=== PATIENT | male | born 1965 | race Asian ===

== ENCOUNTER → 2017-04-30 | Outpatient (CLI) | payer OTHER ==
[2017-04-30 12:46] LABS: HEMATOCRIT 46.4 % (39.2-51.8); HEMOGLOBIN 15.5 g/dL (13.7-18.0); WHITE BLOOD COUNT 4.1 x10^3/uL (3.4-10)
[2017-04-30 12:58] LABS: BLOOD UREA NITROGEN 24 mg/dL (7-18)
[2017-04-30 13:04] LABS: ASPARTATE AMINO TRANSFERASE 25 U/L (15-37)
== END | disposition home or self-care (01) ==
LOC: CFH 06:46
PROVIDERS: ATTEND Radiology Radiation Oncology
DX: Z12.5 Encounter for screening for malignant neoplasm of prostate (principal); Z13.0 Encounter for screening for diseases of the blood and blood-forming organs and certain disorders involving the immune mechanism; Z13.228 Encounter for screening for other metabolic disorders; R79.89 Other specified abnormal findings of blood chemistry
CPT/HCPCS: 36415; 80053; 80061; 84153; 85025; G0103

== ENCOUNTER 2018-02-21 10:14 | Observation (INO) | payer OTHER ==
[~2018-02-21] VITALS: Ht 172.7 cm; Wt 59.0 kg
[2018-02-21 11:55] LABS: BASOPHILS # (AUTO) 0.02 x10^3/uL (0-0.1); BASOPHILS % (AUTO) 0 % (0-1); EOSINOPHILS # (AUTO) 0.02 x10^3/uL (0-0.4); EOSINOPHILS % (AUTO) 0 % (1-7); LYMPHOCYTES # (AUTO) 0.65 x10^3/uL (1-3.4); LYMPHOCYTES % (AUTO) 7 % (22-44); MD NO; MEAN CORPUSCULAR HEMOGLOBIN 31.6 pg (27.5-34.5); MEAN CORPUSCULAR HGB CONC 34.1 g/dL (33.2-36.2); MEAN CORPUSCULAR VOLUME 92.6 fL (81-97); MEAN PLATELET VOLUME 7.5 fL (7.4-10.4); MONOCYTES # (AUTO) 0.24 x10^3/uL (0.2-0.8); MONOCYTES % (AUTO) 3 % (2-9); NEUTROPHILS # (AUTO) 8.72 x10^3/uL (1.8-6.8); NEUTROPHILS % (AUTO) 90 % (42-75); PLATELET COUNT 267 x10^3/uL (130-400); RED BLOOD COUNT 4.98 x10^6/uL (4.38-5.82); RED CELL DISTRIBUTION WIDTH 13.3 % (9.4-14.8)
[2018-02-21] MEDS ORDERED: FENTANYL PF 100 MCG/2ML IV ONE (12:00)
[2018-02-21] MEDS ORDERED: DIAZEPAM 5 MG/ML, 2ML IV ONE (12:00)
[2018-02-21 12:02] LABS: ALBUMIN 4.2 g/dL (3.4-5.0); ANION GAP 7 mmol/L (5-15); CHLORIDE 107 mmol/L (98-107); CREATININE 0.88 mg/dL (0.7-1.3)
[2018-02-21 12:34] LABS: INTERNATIONAL NORMALIZED RATIO 1.03 (0.93-1.1); PROTHROMBIN TIME 10.7 Seconds (9.6-11.5)
[2018-02-21] MEDS ORDERED: MIDAZOLAM 1 MG/ML, 2ML ONE (13:24)
[2018-02-21] MEDS ORDERED: FENTANYL PF 250 MCG/5ML ONE (13:24)
[2018-02-21] MEDS ORDERED: KETAMINE 10 MG/ML, 20ML ONE (13:56)
[2018-02-21] MEDS: D5%-0.45% NACL 1,000 ML IV SCH ×2 (13:57→19:39)
[2018-02-21] MEDS ORDERED: HYDROcodone/APAP 5/325 TABLET PO PRN (14:00)
[2018-02-21] MEDS ORDERED: GABAPENTIN 300 MG CAPSULE PO ONE (14:00)
[2018-02-21] MEDS ORDERED: ONDANSETRON 2MG/ML, 2ML IVPush PRN (14:00)
[2018-02-21] MEDS: CEFAZOLIN PMX 1GM/50ML 50 ML IVPB SCH ×2 (14:00→22:22)
[2018-02-21] MEDS ORDERED: OXYcodone/APAP 5/325MG TABLET PO PRN (14:00)
[2018-02-21] MEDS ORDERED: ACETAMINOPHEN 500 MG TABLET PO ONE (14:00)
[2018-02-21] MEDS ORDERED: morphine SULFATE 10 MG/ML, 1ML IVPush PRN (14:00)
[2018-02-21] MEDS ORDERED: BUPIVACAINE/PF-EPI 0.5% 1:200K ONE (14:01)
[2018-02-21] MEDS ORDERED: ONDANSETRON 2MG/ML, 2ML ONE (14:13)
[2018-02-21] MEDS ORDERED: CEFAZOLIN 1,000 MG ONE (14:13)
[2018-02-21] MEDS ORDERED: PROPOFOL 10 MG/ML, 20ML ONE (14:13)
[2018-02-21] MEDS ORDERED: ROCURONIUM 10 MG/ML,10ML ONE (14:13)
[2018-02-21] MEDS ORDERED: SUCCINYLCHOLINE 20 MG/ML, 10ML ONE (14:13)
[2018-02-21] MEDS ORDERED: DEXAMETHASONE 4 MG/ML, 1ML ONE (14:13)
[2018-02-21] MEDS ORDERED: TRANEXAMIC ACID 100 MG/ML, 10ML ONE (14:26)
[2018-02-21] MEDS ORDERED: ALBUTEROL SULFATE 2.5 MG/3 ML NPPB PRN (15:30)
[2018-02-21] MEDS ORDERED: MEPERIDINE/PF 25MG/0.5ML IVPush PRN (15:30)
[2018-02-21] MEDS ORDERED: LORazepam 2 MG/ML, 1ML IVPush PRN (15:30)
[2018-02-21] MEDS ORDERED: PROMETHAZINE 25 MG/ML, 1ML IV PRN (15:30)
[2018-02-21] MEDS ORDERED: HYDROmorphone 1 MG/ML, 1ML IV PRN (15:30)
[2018-02-21] MEDS ORDERED: FENTANYL PF 100 MCG/2ML IV PRN (15:30)
[2018-02-21] MEDS ORDERED: OXYcodone 5 MG/5 ML ORAL.SOL UDC PO PRN (15:30)
[2018-02-21] MEDS ORDERED: LABETALOL 5MG/ML, 20ML IV PRN (15:30)
[2018-02-21] MEDS ORDERED: hydrALAzine 20 MG/ML, 1ML IV PRN (15:30)
[2018-02-21] MEDS ORDERED: MORPHINE SULFATE 4 MG/ML, 1ML IVPush PRN (15:30)
[2018-02-21 19:45] VITALS: BP 101/61
[2018-02-21] MEDS: ASPIRIN 325 MG TABLET EC PO SCH (20:11)
[2018-02-21] MEDS: DOCUSATE 100 MG CAPSULE PO SCH (20:11)
[2018-02-22 00:23] VITALS: BP 94/52
[2018-02-22 02:32] VITALS: BP 109/61
[2018-02-22 04:11] VITALS: BP 107/62
[2018-02-22 07:35] VITALS: BP 112/68
[2018-02-22] MEDS: DOCUSATE 100 MG CAPSULE PO SCH (08:03)
[2018-02-22] MEDS: ASPIRIN 325 MG TABLET EC PO SCH (08:03)
[2018-02-22] MEDS ORDERED: HYDR-3240 PO (09:50)
[2018-02-22] MEDS ORDERED: ASPIRIN (09:50)
[2018-02-22] MEDS ORDERED: ASPI-650 PO (09:51)
== END 2018-02-22 10:40 | disposition home or self-care (01) ==
LOC: ED 12:01 → 4NOR 12:20 → ED 23:51 → 4NOR 23:55 → DCLOUNGE 02-22 10:25
PROVIDERS: ADMIT Orthopaedic Surgery; ATTEND Orthopaedic Surgery
DX: S72.001A Fracture of unspecified part of neck of right femur, initial encounter for closed fracture (principal); V29.3XXA Motorcycle rider (driver) (passenger) injured in unspecified nontraffic accident, initial encounter; Y93.55 Activity, bike riding; Y92.89 Other specified places as the place of occurrence of the external cause; Y99.8 Other external cause status
CPT/HCPCS: 27235; 36415; 73501; 73502; 76000; 80048; 82040; 85025; 85610; 96365; 96375; 97161; G0378; J0330; J0690; J1100; J2250; J2405; J2704; J3010; J3360; C1713

== ENCOUNTER → 2018-04-21 | Outpatient (CLI) | payer OTHER ==
[~2018-04-21] MED LIST: ASPI-650 PO; ASPIRIN; HYDR-3240 PO
[2018-04-21 07:31] LABS: CHOL/HDL RATIO 2.8; LDL/HDL RATIO 1.4 (0.5-3.0); PSA SCREEN 1.08 ng/mL (0.00-4.00)
== END | disposition home or self-care (01) ==
LOC: LAB 07:04
PROVIDERS: ATTEND Radiology Radiation Oncology
DX: Z13.220 Encounter for screening for lipoid disorders (principal); Z12.5 Encounter for screening for malignant neoplasm of prostate
CPT/HCPCS: 36415; 80061; G0103

== ENCOUNTER → 2020-04-24 | Outpatient (CLI) | payer OTHER ==
[2020-04-24 07:38] LABS: CHOL/HDL RATIO 2.4; LDL/HDL RATIO 1.2 (0.5-3.0); PSA SCREEN 1.43 ng/mL (0.00-4.00)
== END | disposition home or self-care (01) ==
LOC: LAB 07:08
PROVIDERS: ATTEND Radiology Radiation Oncology
DX: Z12.5 Encounter for screening for malignant neoplasm of prostate (principal); Z13.820 Encounter for screening for osteoporosis; R53.83 Other fatigue
CPT/HCPCS: 36415; 80061; 84403; G0103

== ENCOUNTER 2021-04-12 07:02 | Outpatient (CLI) | payer OTHER ==
[~2021-04-12 07:02] MED LIST changes: +ASPI-1026 PO; -ASPI-650 PO; +HYDR-2214 PO; -HYDR-3240 PO
[2021-04-12 07:34] LABS: CHOL/HDL RATIO 2.8; LDL/HDL RATIO 1.5 (0.5-3.0)
== END 2021-04-12 23:59 | disposition home or self-care (01) ==
LOC: LAB 07:02
PROVIDERS: ATTEND Internal Medicine
DX: Z13.220 Encounter for screening for lipoid disorders (principal); Z12.5 Encounter for screening for malignant neoplasm of prostate
CPT/HCPCS: 36415; 80061; 84153; G0103